=== PATIENT | female | born 1965 | race American Indian/Alaskan Native ===

== ENCOUNTER 2017-09-03 08:15 | Emergency (ER) | payer OTHER ==
[2017-09-03 08:25] VITALS: BP 154/82
[2017-09-03] MEDS ORDERED: TORADOL IM ONE (09:25)
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
== END 2017-09-03 09:44 | disposition home or self-care (01) ==
LOC: ED 08:15
DX: M54.5 Low back pain (principal); I10 Essential (primary) hypertension; Z90.49 Acquired absence of other specified parts of digestive tract; Z90.711 Acquired absence of uterus with remaining cervical stump; V89.2XXA Person injured in unspecified motor-vehicle accident, traffic, initial encounter; Y93.89 Activity, other specified; Y92.89 Other specified places as the place of occurrence of the external cause; Y99.8 Other external cause status
CPT/HCPCS: 96372; 99282; J1885